=== PATIENT | male | born 1995 | race African-American/Black ===

== ENCOUNTER 2016-03-02 18:01 | Emergency (ER) | payer MEDICAID, OTHER ==
--- NOTE | 2016-03-02 20:10 | EDDOCDS ---
Nurse's Notes [facility] Name: Aleksandar Hussein Age: 20 yrs Sex: Male : 1995 Arrival Date: 03/02/2016 Time: 18:01 Bed Triage 2 Private MD: NO PRIMARY PHYSICIAN, . Diagnosis: Unspecified hemorrhoids-EXTERNAL, WITH RECTAL PAIN;Nausea Presentation: 03/02 18:03 Presenting complaint: Patient states: rectal pain, diarrhea, nausea and vomiting 3 rs3 days. H/o Hemorrhoid. Adult Sepsis Screening: The patient does not have new or worsening altered mentation. Patient's respiratory rate is less than 22. Systolic blood pressure is greater than 100. Patient has a qSOFA score of 0- Negative Sepsis Screen. Suicide/Homicide risk assessment- the patient denies having any suicidal and/or homicidal ideations and does not present with any other emotional, behavioral or mental health complaints. Status: Patient is not a hr shared services consultant or dependent. Transition of care: patient was not received from another setting of care. 18:03 Acuity: JAMIE Level 4 rs3 18:03 Method Of Arrival: Walkin/Carried/Asstd rs3 Triage Assessment: 18:05 General: Appears in no apparent distress. Pain: Location: buttocks. HIV screening NA rs3 for this visit Offered previously. Historical: - Allergies: no known allergies; - Home Meds: 1. none - PMHx: Asthma; - PSHx: none; - Social history: Smoking status: Patient uses tobacco products, heavy tobacco smoker. No barriers to communication noted, The patient speaks fluent Burmese. - Family history: Not pertinent. - : The pt / caregiver states he / she is not on anticoagulants. Home medication list is obtained from the patient. - Exposure Risk Screening:: None identified. Screenin:07 Screening information is obtained from the patient. Fall risk: No risks identified. kmg1 Assistance ADL's: requires no assistance with activities of daily living. Abuse/DV Screen: The patient / caregiver reports he/she is: not in a situation that causes fear, pain or injury. Nutritional screening: No deficits noted. Advance Directives: There is no active DNR order. home support is adequate. Assessment: 20:07 General: Appears in no apparent distress, uncomfortable, Behavior is appropriate for kmg1 age, cooperative. Pain: Location: anus Quality of pain is described as burning, pressure. GI: Abdomen is flat, non- distended Reports nausea. : PA inspected and noted external hemmorrhoids. Vital Signs: 18:02 BP 129 / 71; Pulse 65; Resp 18 S; Temp 97.8(O); Pulse Ox 100% on R/A; Weight 58.97 kg dd6 (R); Height 5 ft. 7 in. (170.18 cm) (R); 18:02 Body Mass Index 20.36 (58.97 kg, 170.18 cm) dd6 Vitals: 18:02 Log In Time: March 02, 2016 at 18:00. dd6 ED Course: 18:02 Patient visited by Tad Soria PCA. dd6 18:02 NO PRIMARY PHYSICIAN, . is Private Physician. dd6 18:02 Patient moved to Waiting dd6 18:03 Patient moved to Pre RCE dd6 18:04 Triage Initiated rs3 19:25 Patient moved to Triage 2 ct3 19:45 Conchis Kapadia PA-C is PHCP. dt4 19:45 Henry Irwin DO is Attending Physician. dt4 19:45 Patient visited by Conchis Kapadia PA-C. dt4 19:57 [facility] is Referral Physician. dt4 20:07 The patient / caregiver is instructed regarding the plan of care and ED course. kmg1 20:07 No IV's were initiated during this patient's visit. No procedures done that require kmg1 assistance. Order Results: There are currently no results for this order. Outcome: 19:59 Discharge ordered by Provider. dt4 20:07 Discharge Assessment: Patient awake, alert and oriented x 3. No cognitive and/or kmg1 functional deficits noted. Patient verbalized understanding of disposition instructions. Patient awake and alert. patient administered narcotics - no. The following High Risk Discharge criteria are identified: None. Discharged to home ambulatory, with significant other. Condition: stable. Discharge instructions given to patient, Instructed on discharge instructions, follow up and referral plans. medication usage, Demonstrated understanding of instructions, medications, Pt was receptive of discharge instructions/ teaching. Prescriptions given X 3. No special radiology studies were completed. Property sent home with patient. 20:10 Patient left the ED. km Signatures: Silvia Rivas RN RN km Tad Soria, REGISTRATION CLERK REGISTRATION CLERK dd6 Sushma,Shea,RN RN rs3 Brina Metcalf, REGISTRATION CLERK REGISTRATION CLERK ct3 Steffi, Conchis, JOANN DAVID dt4 MTDD
--- NOTE | 2016-03-02 20:10 | EDDOCDS ---
Physician Documentation [facility] Name: Aleksandar Hussein Age: 20 yrs Sex: Male : 1995 Arrival Date: 03/02/2016 Time: 18:01 Bed Triage 2 Private MD: NO PRIMARY PHYSICIAN, . Disposition: 03/02/16 19:59 Discharged to Home/Self Care. Impression: Unspecified hemorrhoids - EXTERNAL, WITH RECTAL PAIN, Nausea. - Condition is Stable. - Discharge Instructions: Hemorrhoids, Nausea, Adult. - Prescriptions for Colace 100 mg Oral Capsule - take 1 tablet by ORAL route every 12 hours As needed NEEDED FOR CONSTIPATION; 20 tablet. ZOFRAN ODT 4 mg Oral - dissolve 1 tablet by ORAL route 3-4 times daily As needed do not chew, do not swallow whole; 20 tablet. Hydrocortisone 2.5 % Rectal Cream - apply 1 application by TOPICAL route 4 times per day As needed; 30 gram. - Medication Reconciliation, Local Pharmacy Hours form. - Follow up: Emergency Department; When: As needed; Reason: Worsening of conditions. [facility]: [facility]; When: Call to arrange an appointment; Reason: Recheck today's complaints, Continuance of care, To establish care. - Problem is new. - Symptoms are unchanged. Historical: - Allergies: no known allergies; - Home Meds: 1. none - PMHx: Asthma; - PSHx: none; - Social history: Smoking status: Patient uses tobacco products, heavy tobacco smoker. No barriers to communication noted, The patient speaks fluent Telugu. - Family history: Not pertinent. - : The pt / caregiver states he / she is not on anticoagulants. Home medication list is obtained from the patient. - Exposure Risk Screening:: None identified. Vital Signs: 03/02 18:02 BP 129 / 71; Pulse 65; Resp 18 S; Temp 97.8(O); Pulse Ox 100% on R/A; Weight 58.97 kg / dd6 130.01 lbs (R); Height 5 ft. 7 in. (170.18 cm) (R); 18:02 Body Mass Index 20.36 (58.97 kg, 170.18 cm) dd6 Signatures: Silvia Rivas RN RN kmg1 Shea Ordaz RN RN rs3 Tschudi, Conchis, PA-C PA-C dt4 MTDD
--- NOTE | 2016-03-04 21:10 | EDDOCDS ---
Nurse's Notes [facility] Name: Aleksandar Hussein Age: 20 yrs Sex: Male : 1995 Arrival Date: 03/02/2016 Time: 18:01 Bed Triage 2 Private MD: NO PRIMARY PHYSICIAN, . Diagnosis: Unspecified hemorrhoids-EXTERNAL, WITH RECTAL PAIN;Nausea Presentation: 03/02 18:03 Presenting complaint: Patient states: rectal pain, diarrhea, nausea and vomiting 3 rs3 days. H/o Hemorrhoid. Adult Sepsis Screening: The patient does not have new or worsening altered mentation. Patient's respiratory rate is less than 22. Systolic blood pressure is greater than 100. Patient has a qSOFA score of 0- Negative Sepsis Screen. Suicide/Homicide risk assessment- the patient denies having any suicidal and/or homicidal ideations and does not present with any other emotional, behavioral or mental health complaints. Status: Patient is not a flight service specialist or dependent. Transition of care: patient was not received from another setting of care. 18:03 Acuity: JAMIE Level 4 rs3 18:03 Method Of Arrival: Walkin/Carried/Asstd rs3 Triage Assessment: 18:05 General: Appears in no apparent distress. Pain: Location: buttocks. HIV screening NA rs3 for this visit Offered previously. Historical: - Allergies: no known allergies; - Home Meds: 1. none - PMHx: Asthma; - PSHx: none; - Social history: Smoking status: Patient uses tobacco products, heavy tobacco smoker. No barriers to communication noted, The patient speaks fluent Maori. - Family history: Not pertinent. - : The pt / caregiver states he / she is not on anticoagulants. Home medication list is obtained from the patient. - Exposure Risk Screening:: None identified. Screenin:07 Screening information is obtained from the patient. Fall risk: No risks identified. kmg1 Assistance ADL's: requires no assistance with activities of daily living. Abuse/DV Screen: The patient / caregiver reports he/she is: not in a situation that causes fear, pain or injury. Nutritional screening: No deficits noted. Advance Directives: There is no active DNR order. home support is adequate. Assessment: 20:07 General: Appears in no apparent distress, uncomfortable, Behavior is appropriate for kmg1 age, cooperative. Pain: Location: anus Quality of pain is described as burning, pressure. GI: Abdomen is flat, non- distended Reports nausea. : PA inspected and noted external hemmorrhoids. Vital Signs: 18:02 BP 129 / 71; Pulse 65; Resp 18 S; Temp 97.8(O); Pulse Ox 100% on R/A; Weight 58.97 kg dd6 (R); Height 5 ft. 7 in. (170.18 cm) (R); 18:02 Body Mass Index 20.36 (58.97 kg, 170.18 cm) dd6 Vitals: 18:02 Log In Time: March 02, 2016 at 18:00. dd6 ED Course: 18:02 Patient visited by Tad Soria PCA. dd6 18:02 NO PRIMARY PHYSICIAN, . is Private Physician. dd6 18:02 Patient moved to Waiting dd6 18:03 Patient moved to Pre RCE dd6 18:04 Triage Initiated rs3 19:25 Patient moved to Triage 2 ct3 19:45 Conchis Kapadia PA-C is PHCP. dt4 19:45 Henry Irwin DO is Attending Physician. dt4 19:45 Patient visited by Conchis Kapadia PA-C. dt4 19:57 [facility] is Referral Physician. dt4 20:07 The patient / caregiver is instructed regarding the plan of care and ED course. kmg1 20:07 No IV's were initiated during this patient's visit. No procedures done that require kmg1 assistance. 20:15 [facility] Payment Agreement was scanned into [employer] and attached to record. jp5 03/03 12:05 T-Sheet-- Draft Copy was scanned into [employer] and attached to record. gb Order Results: There are currently no results for this order. Outcome: 03/02 19:59 Discharge ordered by Provider. dt4 20:07 Discharge Assessment: Patient awake, alert and oriented x 3. No cognitive and/or kmg1 functional deficits noted. Patient verbalized understanding of disposition instructions. Patient awake and alert. patient administered narcotics - no. The following High Risk Discharge criteria are identified: None. Discharged to home ambulatory, with significant other. Condition: stable. Discharge instructions given to patient, Instructed on discharge instructions, follow up and referral plans. medication usage, Demonstrated understanding of instructions, medications, Pt was receptive of discharge instructions/ teaching. Prescriptions given X 3. No special radiology studies were completed. Property sent home with patient. 20:10 Patient left the ED. kmg1 Signatures: Silvia Rivas, RN RN kmg1 Alecia Diaz, Reg Reg gb EstellaTad, NOODLE PRESS OPERATOR NOODLE PRESS OPERATOR dd6 Shea Ordaz RN RN rs3 Brina Metcalf, NOODLE PRESS OPERATOR NOODLE PRESS OPERATOR ct3 Conchis Kapadia PAMavis PAMavis dt4 Essence Rocha jp5 Chart Complete MTDD
--- NOTE | 2016-03-04 21:10 | EDDOCDS ---
Physician Documentation [facility] Name: Aleksandar Hussein Age: 20 yrs Sex: Male : 1995 Arrival Date: 03/02/2016 Time: 18:01 Bed Triage 2 Private MD: NO PRIMARY PHYSICIAN, . Disposition: 03/02/16 19:59 Discharged to Home/Self Care. Impression: Unspecified hemorrhoids - EXTERNAL, WITH RECTAL PAIN, Nausea. - Condition is Stable. - Discharge Instructions: Hemorrhoids, Nausea, Adult. - Prescriptions for Colace 100 mg Oral Capsule - take 1 tablet by ORAL route every 12 hours As needed NEEDED FOR CONSTIPATION; 20 tablet. ZOFRAN ODT 4 mg Oral - dissolve 1 tablet by ORAL route 3-4 times daily As needed do not chew, do not swallow whole; 20 tablet. Hydrocortisone 2.5 % Rectal Cream - apply 1 application by TOPICAL route 4 times per day As needed; 30 gram. - Medication Reconciliation, Local Pharmacy Hours form. - Follow up: Emergency Department; When: As needed; Reason: Worsening of conditions. Follow [facility]: [facility]; When: Call to arrange an appointment; Reason: Recheck today's complaints, Continuance of care, To establish care. - Problem is new. - Symptoms are unchanged. Historical: - Allergies: no known allergies; - Home Meds: 1. none - PMHx: Asthma; - PSHx: none; - Social history: Smoking status: Patient uses tobacco products, heavy tobacco smoker. No barriers to communication noted, The patient speaks fluent Uzbek. - Family history: Not pertinent. - : The pt / caregiver states he / she is not on anticoagulants. Home medication list is obtained from the patient. - Exposure Risk Screening:: None identified. Vital Signs: 03/02 18:02 BP 129 / 71; Pulse 65; Resp 18 S; Temp 97.8(O); Pulse Ox 100% on R/A; Weight 58.97 kg / dd6 130.01 lbs (R); Height 5 ft. 7 in. (170.18 cm) (R); 18:02 Body Mass Index 20.36 (58.97 kg, 170.18 cm) dd6 MDM: 20:15 [facility] Payment Agreement was scanned into [employer] and attached to record. jp5 20:16 Financial registration complete. jp5 03/03 12:05 T-Sheet-- Draft Copy was scanned into [employer] and attached to record. gb Signatures: Silvia Rivas, RN RN kmg1 Alecia Diaz, Reg Reg gb Shea OrdazRN RN rs3 Conchis Kapadia, JOANN PAMavis dt4 Essence Rocha jp5 The chart was reviewed and I authenticate all verbal orders and agree with the evaluation and treatment provided.Attachments: 03/02 20:15 [facility] [place] Payment Agreement jp5 03/03 12:05 T-Sheet-- Draft Copy gb Chart Complete MTDD
--- NOTE | 2016-03-04 21:10 | EDDOCDS ---
Physician Documentation [facility] Name: Aleksandar Hussein Age: 20 yrs Sex: Male : 1995 Arrival Date: 03/02/2016 Time: 18:01 Bed Triage 2 Private MD: NO PRIMARY PHYSICIAN, . Disposition: 03/02/16 19:59 Discharged to Home/Self Care. Impression: Unspecified hemorrhoids - EXTERNAL, WITH RECTAL PAIN, Nausea. - Condition is Stable. - Discharge Instructions: Hemorrhoids, Nausea, Adult. - Prescriptions for Colace 100 mg Oral Capsule - take 1 tablet by ORAL route every 12 hours As needed NEEDED FOR CONSTIPATION; 20 tablet. ZOFRAN ODT 4 mg Oral - dissolve 1 tablet by ORAL route 3-4 times daily As needed do not chew, do not swallow whole; 20 tablet. Hydrocortisone 2.5 % Rectal Cream - apply 1 application by TOPICAL route 4 times per day As needed; 30 gram. - Medication Reconciliation, Local Pharmacy Hours form. - Follow up: Emergency Department; When: As needed; Reason: Worsening of conditions. Follow [facility]: [facility]; When: Call to arrange an appointment; Reason: Recheck today's complaints, Continuance of care, To establish care. - Problem is new. - Symptoms are unchanged. Historical: - Allergies: no known allergies; - Home Meds: 1. none - PMHx: Asthma; - PSHx: none; - Social history: Smoking status: Patient uses tobacco products, heavy tobacco smoker. No barriers to communication noted, The patient speaks fluent Nepali. - Family history: Not pertinent. - : The pt / caregiver states he / she is not on anticoagulants. Home medication list is obtained from the patient. - Exposure Risk Screening:: None identified. Vital Signs: 03/02 18:02 BP 129 / 71; Pulse 65; Resp 18 S; Temp 97.8(O); Pulse Ox 100% on R/A; Weight 58.97 kg / dd6 130.01 lbs (R); Height 5 ft. 7 in. (170.18 cm) (R); 18:02 Body Mass Index 20.36 (58.97 kg, 170.18 cm) dd6 MDM: 20:15 [facility] Payment Agreement was scanned into [employer] and attached to record. jp5 20:16 Financial registration complete. jp5 03/03 12:05 T-Sheet-- Draft Copy was scanned into [employer] and attached to record. gb Signatures: Silvia Rivas, RN RN kmg1 Alecia Diaz, Reg Reg gb Shea OrdazRN RN rs3 Conchis Kapadia, JOANN PAMavis dt4 Essence Rocha jp5 The chart was reviewed and I authenticate all verbal orders and agree with the evaluation and treatment provided.Attachments: 03/02 20:15 [facility] Payment Agreement jp5 03/03 12:05 T-Sheet-- Draft Copy gb Chart Complete MTDD
== END 2016-03-02 20:10 | disposition home or self-care (01) ==
LOC: M ED 18:01
DX: K64.4 Residual hemorrhoidal skin tags (principal); K62.89 Other specified diseases of anus and rectum; R11.0 Nausea; J45.909 Unspecified asthma, uncomplicated; F17.200 Nicotine dependence, unspecified, uncomplicated

== ENCOUNTER 2016-03-29 23:11 | Emergency (ER) | payer OTHER ==
[2016-03-30] MEDS ORDERED: IBUPROFEN 600 MG TAB As Ordered ONE (01:34)
[2016-03-30] MEDS ORDERED: ACETAMINOPHEN 325 MG TAB As Ordered ONE (01:35)
[2016-03-30 01:55] LABS: BASO % 0.4 % (0.0-1.0); EOS # 0.1 K/mm3 (0.0-0.50); EOS % 1.2 % (0.0-3.0); LARGE UNSTAINED CELL # 0.2 K/mm3 (0.0-0.4); LARGE UNSTAINED CELL % 1.7 % (0.0-4.0); LYMPH # 1.2 K/mm3 (1.5-6.5); LYMPH % 14.1 % (24.0-44.0); MEAN CORPUSCULAR HEMOGLOBIN 30.9 pg (27.0-33.0); MEAN CORPUSCULAR HGB CONC 34.6 g/dl (32.0-36.5); MEAN CORPUSCULAR VOLUME 89.4 fl (80.0-96.0); MONO # 0.3 K/mm3 (0.0-0.8); MONO % 3.8 % (0.0-5.0); NEUTROPHILS # 6.7 K/mm3 (1.8-7.7); NEUTROPHILS % 78.8 % (36.0-66.0); PLATELET COUNT, AUTOMATED 196 k/mm3 (150-450); RED CELL DISTRIBUTION WIDTH 12.2 % (11.5-14.5); WHITE BLOOD COUNT 8.4 K/mm3 (4.0-10.0)
[2016-03-30 02:19] LABS: ANION GAP 7 MEQ/L (8-16); BLOOD UREA NITROGEN 9 MG/DL (7-18); CALCIUM LEVEL 8.9 MG/DL (8.5-10.1); CARBON DIOXIDE LEVEL 27 MEQ/L (21-32); CHLORIDE LEVEL 106 MEQ/L (98-107); CREATININE FOR GFR 0.88 MG/DL (0.70-1.30); GLUCOSE, FASTING 86 MG/DL (70-105); SODIUM LEVEL 140 MEQ/L (136-145)
[2016-03-30] MEDS ORDERED: DOXYCYCLINE HYCLATE 100 MG TAB As Ordered ONE (02:40)
[2016-03-30] MEDS ORDERED: predniSONE 20 MG TAB As Ordered ONE (02:40)
--- NOTE | 2016-03-30 02:48 | EDDOCDS ---
Nurse's Notes [facility] Name: Aleksandar Hussein Age: 20 yrs Sex: Male : 1995 Arrival Date: 03/29/2016 Time: 23:11 Bed I2 / M2 Private MD: Diagnosis: Acute bronchitis Presentation: 03/29 23:25 Presenting complaint: Patient states: Burning ion chest and throat. Feels SOB with jo3 tenderness behind ears and around eyes. Coughing with thick green mucous production. Adult Sepsis Screening: The patient does not have new or worsening altered mentation. Patient's respiratory rate is less than 22. Systolic blood pressure is greater than 100. Patient has a qSOFA score of 0- Negative Sepsis Screen. Suicide/Homicide risk assessment- the patient denies having any suicidal and/or homicidal ideations and does not present with any other emotional, behavioral or mental health complaints. Status: Patient is not a electric refrigerator servicer or dependent. Transition of care: patient was not received from another setting of care. 23:25 Acuity: JAMIE Level 4 jo3 23:25 Method Of Arrival: Walkin/Carried/Asstd jo3 Triage Assessment: 23:26 General: Appears in no apparent distress, Behavior is appropriate for age, cooperative. jo3 HIV screening NA for this visit Offered previously. Neurological: Level of Consciousness is awake, alert, Oriented to person, place, time. Respiratory: Airway is patent Respiratory effort is even, unlabored. Derm: Skin is pink, warm & dry. Historical: - Allergies: No known drug Allergies; - Home Meds: 1. none - PMHx: Asthma; - PSHx: none; - Social history: Smoking status: Patient uses tobacco products, light tobacco smoker. No barriers to communication noted, The patient speaks fluent Andorran, Speaks appropriately for age. - Family history: Not pertinent. - : The pt / caregiver states he / she is not on anticoagulants. Home medication list is obtained from. - Exposure Risk Screening:: None identified. Screenin/17 02:45 Screening information is obtained from the patient. Fall risk: No risks identified. ld5 Assistance ADL's: requires no assistance with activities of daily living. Abuse/DV Screen: The patient / caregiver reports he/she is: not in a situation that causes fear, pain or injury. Nutritional screening: No deficits noted. Advance Directives: There is no active DNR order. There is no living will. home support is adequate. Assessment: 01:38 General: Appears in no apparent distress, Behavior is cooperative. Pain: Location: ld5 chest Aggravated by cough. Neurological: Level of Consciousness is awake, alert. Cardiovascular: Chest pain pt reports from coughing. Respiratory: Airway is patent Respiratory effort is even, unlabored, Breath sounds are diminished bilaterally. GI: Abdomen is non- distended Denies nausea, vomiting. Derm: Skin is intact, Skin is dry, Skin is normal, Skin temperature is warm. 02:33 General: Pt sitting up in bed. No apparent distress. Reports feeling better. Will ld5 continue to monitor. 02:45 General: Appears in no apparent distress, Behavior is cooperative, pleasant. Pain: Pain ld5 currently is 2 out of 10 on a pain scale. Neurological: Level of Consciousness is awake, alert. Respiratory: Airway is patent Respiratory effort is even, unlabored. Vital Signs: 03/29 23:26 BP 119 / 63; Pulse 87; Resp 18; Temp 101.7(TE); Pulse Ox 96% on R/A; Weight 62.6 kg; jo3 Height 5 ft. 7 in. (170.18 cm); 03/30 02:33 BP 123 / 60; Pulse 85; Resp 16; Temp 98.2; Pulse Ox 95% on R/A; Pain 2/10; ld5 03/29 23:26 Body Mass Index 21.61 (62.60 kg, 170.18 cm) jo3 Vitals: 01:49 Strep Screen is obtained and tested: Negative, a GATSNEG culture is ordered in [facility] and sent. 02:47 Log In Time: March 29, 2016 at 23:11. ld5 ED Course: 03/29 23:12 Patient visited by Tereso Costa Reg. pm4 23:12 Patient moved to Waiting pm4 23:26 Triage Initiated jo3 23:28 Patient visited by Karoline Castelan RN. jo3 23:28 Patient moved to Pre RCE jo3 03/30 01:08 Patient moved to MTA Wait sls1 01:27 Patient moved to I2 / M2 ajs 01:32 Janes Mariscal RPA-C is PHCP. ck7 01:32 Henry Irwin DO is Attending Physician. ck7 01:32 Patient visited by Janes Mariscal RPA-C. ck7 01:40 MED Profile Sent. ajs 01:40 CBC with Diff Sent. ajs 01:44 Patient visited by Christine Rosenberg RN. ld5 01:52 GATS (NEGATIVE STREP SCREEN) Sent. m 02:09 [facility] Payment Agreement was scanned into [employer] and attached to record. hs2 02:17 Patient visited by Janes Mariscal RPA-C. ck7 02:33 Patient visited by Christine Rosenberg RN. ld5 02:41 [facility] is Referral Physician. ck7 02:45 The patient / caregiver is instructed regarding the plan of care and ED course. Patient ld5 has correct armband on for positive identification. 02:45 No IV's were initiated during this patient's visit. No procedures done that require ld5 assistance. 02:47 Patient visited by Christine Rosenberg RN. ld5 Administered Medications: 01:37 Drug: Acetaminophen 975 mg [acetaminophen 325 mg tablet (3 tabs)] Route: PO; ld5 02:34 Follow up: Response: Temperature is decreased ld5 01:37 Drug: Ibuprofen 600 mg [ibuprofen 600 mg tablet (1 tabs)] Route: PO; ld5 02:34 Follow up: Response: Temperature is decreased ld5 Order Results: Lab Order: CBC with Diff; SPEC'M 03/30/16 01:35 Test: WHITE BLOOD COUNT; Value: 8.4; Range: 4.0-10.0; Units: K/mm3; Status: F Test: RED BLOOD COUNT; Value: 4.72; Range: 4.30-6.10; Units: M/mm3; Status: F Test: HEMOGLOBIN; Value: 14.6; Range: 14.0-18.0; Units: g/dl; Status: F Test: HEMATOCRIT; Value: 42.2; Range: 42.0-52.0; Units: %; Status: F Test: MEAN CORPUSCULAR VOLUME; Value: 89.4; Range: 80.0-96.0; Units: fl; Status: F Test: MEAN CORPUSCULAR HEMOGLOBIN; Value: 30.9; Range: 27.0-33.0; Units: pg; Status: F Test: MEAN CORPUSCULAR HGB CONC; Value: 34.6; Range: 32.0-36.5; Units: g/dl; Status: F Test: RED CELL DISTRIBUTION WIDTH; Value: 12.2; Range: 11.5-14.5; Units: %; Status: F Test: PLATELET COUNT, AUTOMATED; Value: 196; Range: 150-450; Units: k/mm3; Status: F Test: NEUTROPHILS %; Value: 78.8; Range: 36.0-66.0; Abnormal: Above high normal; Units: %; Status: F Test: LYMPH %; Value: 14.1; Range: 24.0-44.0; Abnormal: Below low normal; Units: %; Status: F Test: MONO %; Value: 3.8; Range: 0.0-5.0; Units: %; Status: F Test: EOS %; Value: 1.2; Range: 0.0-3.0; Units: %; Status: F Test: BASO %; Value: 0.4; Range: 0.0-1.0; Units: %; Status: F Test: LARGE UNSTAINED CELL %; Value: 1.7; Range: 0.0-4.0; Units: %; Status: F Test: NEUTROPHILS #; Value: 6.7; Range: 1.8-7.7; Units: K/mm3; Status: F Test: LYMPH #; Value: 1.2; Range: 1.5-6.5; Abnormal: Below low normal; Units: K/mm3; Status: F Test: MONO #; Value: 0.3; Range: 0.0-0.8; Units: K/mm3; Status: F Test: EOS #; Value: 0.1; Range: 0.0-0.50; Units: K/mm3; Status: F Test: BASO #; Value: 0.0; Range: 0.0-0.2; Units: K/mm3; Status: F Test: LARGE UNSTAINED CELL #; Value: 0.2; Range: 0.0-0.4; Units: K/mm3; Status: F Lab Order: MED Profile; SPEC'M 03/30/16 01:35 Test: GLUCOSE, FASTING; Value: 86; Range: 70-105; Units: MG/DL; Status: F Test: BLOOD UREA NITROGEN; Value: 9; Range: 7-18; Units: MG/DL; Status: F Test: CREATININE FOR GFR; Value: 0.88; Range: 0.70-1.30; Units: MG/DL; Status: F Test: SODIUM LEVEL; Value: 140; Range: 136-145; Units: MEQ/L; Status: F Test: POTASSIUM SERUM; Value: 4.0; Range: 3.5-5.1; Units: MEQ/L; Status: F Test: CHLORIDE LEVEL; Value: 106; Range: 98-107; Units: MEQ/L; Status: F Test: CARBON DIOXIDE LEVEL; Value: 27; Range: 21-32; Units: MEQ/L; Status: F Test: ANION GAP; Value: 7; Range: 8-16; Abnormal: Below low normal; Units: MEQ/L; Status: F Test: CALCIUM LEVEL; Value: 8.9; Range: 8.5-10.1; Units: MG/DL; Status: F Lab Order: -Influenza A&B Rapid Antigen - Nose; SPEC'M 03/30/16 01:35 Test: INFLUENZA A RAPID SCR by ICA; Value: INFLUENZA A RESULTS NEGATIVE; Status: F Test: INFLUENZA A RAPID SCR by ICA; Value: Comments:; Status: F Test: INFLUENZA B RAPID SCR by ICA; Value: INFLUENZA B RESULTS NEGATIVE; Status: F Test Note: ; The Influenza test is a direct rapid immunoassay for the qualitative detection of Influenza viral antigen. Cell culture (Viral Culture) testing should be considered to confirm NEGATIVE results and to assist in detecting other viruses that can provide similar clinical symptoms. Please contact the lab within 24 hours ([phone]) if confirmatory testing is desired. Outcome: 02:41 Discharge ordered by Provider. ck7 02:45 Discharge Assessment: Patient awake, alert and oriented x 3. No cognitive and/or ld5 functional deficits noted. Patient verbalized understanding of disposition instructions. patient administered narcotics - no. The following High Risk Discharge criteria are identified: None. Discharged to home ambulatory, with significant other. Condition: stable. Discharge instructions given to patient, significant other, Instructed on discharge instructions, follow up and referral plans. medication usage, Demonstrated understanding of instructions, medications, Pt was receptive of discharge instructions/ teaching. Prescriptions given X 2. No special radiology studies were completed. Property :Personal belongings accompany Pt. 02:47 Patient left the ED. ld5 Signatures: Karoline Castelan,RN RN andres3 Christine RosenbergRN RN ld5 Abigail Roy Shannon RN RN sls1 Janes Mariscal, RPA-C RPA-Cck7 Elodia Reynolds,[employer] MANAGER [employer] MANAGER Ghislaine Costa, Reg Reg hs2 Tereso Costa, Reg Reg pm4 MTDD
--- NOTE | 2016-03-30 02:48 | EDDOCDS ---
Physician Documentation [facility] Name: Aleksandar Hussein Age: 20 yrs Sex: Male : 1995 Arrival Date: 03/29/2016 Time: 23:11 Bed I2 / M2 Private MD: Disposition: 03/30/16 02:41 Discharged to Home/Self Care. Impression: Acute bronchitis. - Condition is Stable. - Discharge Instructions: Acute Bronchitis. - Prescriptions for Doxycycline Hyclate 100 mg Oral Tablet - take 1 tablet by ORAL route every 12 hours; 20 tablet. Prednisone 20 mg Oral Tablet - take 2 tablet by ORAL route once daily for 5 days; 10 tablet. - Medication Reconciliation, Local Pharmacy Hours form. - Follow up: [facility]; When: 2 - 3 days; Reason: Recheck today's complaints, Continuance of care. - Problem is new. - Symptoms have improved. - Notes: USE MEDICATIONS INSTRUCTED, FOLLOW UP WITH THE GRADUATE MEDICAL PROGRAM IN 2-3 DAYS, RETURN TO THE ER IF THE SYMPTOMS WORSEN OR BECOME CONCERNING Historical: - Allergies: No known drug Allergies; - Home Meds: 1. none - PMHx: Asthma; - PSHx: none; - Social history: Smoking status: Patient uses tobacco products, light tobacco smoker. No barriers to communication noted, The patient speaks fluent Khmer, Speaks appropriately for age. - Family history: Not pertinent. - : The pt / caregiver states he / she is not on anticoagulants. Home medication list is obtained from. - Exposure Risk Screening:: None identified. Vital Signs: 03/29 23:26 BP 119 / 63; Pulse 87; Resp 18; Temp 101.7(TE); Pulse Ox 96% on R/A; Weight 62.6 kg / jo3 138.01 lbs; Height 5 ft. 7 in. (170.18 cm); 03/30 02:33 BP 123 / 60; Pulse 85; Resp 16; Temp 98.2; Pulse Ox 95% on R/A; Pain 2/10; ld5 03/29 23:26 Body Mass Index 21.61 (62.60 kg, 170.18 cm) jo3 MDM: 01:33 Obtain sample by nasopharyngeal swab ordered. ck7 01:33 Strep Screen, Nursing ordered. ck7 01:33 Acetaminophen Tablet 975 mg PO once ordered. ck7 01:33 Ibuprofen 600 mg PO once ordered. ck7 01:33 CBC with Diff Ordered. EDMS 01:33 MED Profile Ordered. EDMS 01:33 -Influenza A&B Rapid Antigen - Nose Ordered. EDMS 01:33 Chest, 2 View (pa\E\lat) Ordered. EDMS 01:50 GATS (NEGATIVE STREP SCREEN) Ordered. EDMS 02:09 Financial registration complete. hs2 02:09 [facility] Payment Agreement was scanned into [employer] and attached to record. hs2 02:24 CBC with Diff Reviewed. ck7 02:24 MED Profile Reviewed. ck7 02:24 -Influenza A&B Rapid Antigen - Nose Reviewed. ck7 02:28 Recheck Vital Signs, perform reassessment and enter into [employer] ordered. ck7 02:36 predniSONE 40 mg PO once; administer with food or milk ordered. ck7 02:36 Doxycycline 100 mg PO once ordered. ck7 Administered Medications: 01:37 Drug: Acetaminophen 975 mg [acetaminophen 325 mg tablet (3 tabs)] Route: PO; ld5 02:34 Follow up: Response: Temperature is decreased ld5 01:37 Drug: Ibuprofen 600 mg [ibuprofen 600 mg tablet (1 tabs)] Route: PO; ld5 02:34 Follow up: Response: Temperature is decreased ld5 Signatures: Dispatcher [employer] EDMS Karoline CastelanRN RN andres3 Christine RosenbergRN RN ld5 Janes Mariscal, RPA-C RPA-Cck7 Ghislaine Velasquez, Reg Reg hs2 The chart was reviewed and I authenticate all verbal orders and agree with the evaluation and treatment provided.Attachments: 02:09 [facility] Payment Agreement hs2 MTDD
--- NOTE | 2016-03-30 08:04 | REP ---
Clinical: Acute cough . Comparison: 01/31/2015 . Technique: PA and lateral. Findings: The mediastinum and cardiac silhouette are normal. The lung dent are clear and without acute consolidation, effusion, or pneumothorax. The skeletal structures are intact and normal. Impression: 1. No acute cardiopulmonary process. Signed by Iftikhar Merchant MD 03/30/2016 07:56 A
--- NOTE | 2016-04-01 03:48 | EDDOCDS ---
Physician Documentation [facility] Name: Aleksandar Hussein Age: 20 yrs Sex: Male : 1995 Arrival Date: 03/29/2016 Time: 23:11 Bed I2 / M2 Private MD: Disposition: 03/30/16 02:41 Discharged to Home/Self Care. Impression: Acute bronchitis. - Condition is Stable. - Discharge Instructions: Acute Bronchitis. - Prescriptions for Doxycycline Hyclate 100 mg Oral Tablet - take 1 tablet by ORAL route every 12 hours; 20 tablet. Prednisone 20 mg Oral Tablet - take 2 tablet by ORAL route once daily for 5 days; 10 tablet. - Medication Reconciliation, Local Pharmacy Hours form. - Follow up: [facility]; When: 2 - 3 days; Reason: Recheck today's complaints, Continuance of care. - Problem is new. - Symptoms have improved. - Notes: USE MEDICATIONS INSTRUCTED, FOLLOW UP WITH THE GRADUATE MEDICAL PROGRAM IN 2-3 DAYS, RETURN TO THE ER IF THE SYMPTOMS WORSEN OR BECOME CONCERNING Historical: - Allergies: No known drug Allergies; - Home Meds: 1. none - PMHx: Asthma; - PSHx: none; - Social history: Smoking status: Patient uses tobacco products, light tobacco smoker. No barriers to communication noted, The patient speaks fluent Yoruba, Speaks appropriately for age. - Family history: Not pertinent. - : The pt / caregiver states he / she is not on anticoagulants. Home medication list is obtained from. - Exposure Risk Screening:: None identified. Vital Signs: 03/29 23:26 BP 119 / 63; Pulse 87; Resp 18; Temp 101.7(TE); Pulse Ox 96% on R/A; Weight 62.6 kg / jo3 138.01 lbs; Height 5 ft. 7 in. (170.18 cm); 03/30 02:33 BP 123 / 60; Pulse 85; Resp 16; Temp 98.2; Pulse Ox 95% on R/A; Pain 2/10; ld5 03/29 23:26 Body Mass Index 21.61 (62.60 kg, 170.18 cm) jo3 MDM: 01:33 Obtain sample by nasopharyngeal swab ordered. ck7 01:33 Strep Screen, Nursing ordered. ck7 01:33 Acetaminophen Tablet 975 mg PO once ordered. ck7 01:33 Ibuprofen 600 mg PO once ordered. ck7 01:33 CBC with Diff Ordered. EDMS 01:33 MED Profile Ordered. EDMS 01:33 -Influenza A&B Rapid Antigen - Nose Ordered. EDMS 01:33 Chest, 2 View (pa\E\lat) Ordered. EDMS 01:50 GATS (NEGATIVE STREP SCREEN) Ordered. EDMS 02:09 Financial registration complete. hs2 02:09 [facility] Payment Agreement was scanned into [employer] and attached to record. hs2 02:24 CBC with Diff Reviewed. ck7 02:24 MED Profile Reviewed. ck7 02:24 -Influenza A&B Rapid Antigen - Nose Reviewed. ck7 02:28 Recheck Vital Signs, perform reassessment and enter into [employer] ordered. ck7 02:36 predniSONE 40 mg PO once; administer with food or milk ordered. ck7 02:36 Doxycycline 100 mg PO once ordered. ck7 12:02 T-Sheet-- Draft Copy was scanned into [employer] and attached to record. gb Administered Medications: 01:37 Drug: Acetaminophen 975 mg [acetaminophen 325 mg tablet (3 tabs)] Route: PO; ld5 02:34 Follow up: Response: Temperature is decreased ld5 01:37 Drug: Ibuprofen 600 mg [ibuprofen 600 mg tablet (1 tabs)] Route: PO; ld5 02:34 Follow up: Response: Temperature is decreased ld5 Signatures: Dispatcher [employer] EDMS Alecia Diaz, Reg Reg gb Karoline CastelanRN RN andres3 Christine Rosenberg RN RN ld5 Janes Mariscal, RPA-C RPA-Cck7 Ghislaine Velasquez, Reg Reg hs2 The chart was reviewed and I authenticate all verbal orders and agree with the evaluation and treatment provided.Attachments: 02:09 [facility] Payment Agreement hs2 12:02 T-Sheet-- Draft Copy gb Chart Complete MTDD
--- NOTE | 2016-04-01 03:48 | EDDOCDS ---
Physician Documentation [facility] Name: Aleksandar Hussein Age: 20 yrs Sex: Male : 1995 Arrival Date: 03/29/2016 Time: 23:11 Bed I2 / M2 Private MD: Disposition: 03/30/16 02:41 Discharged to Home/Self Care. Impression: Acute bronchitis. - Condition is Stable. - Discharge Instructions: Acute Bronchitis. - Prescriptions for Doxycycline Hyclate 100 mg Oral Tablet - take 1 tablet by ORAL route every 12 hours; 20 tablet. Prednisone 20 mg Oral Tablet - take 2 tablet by ORAL route once daily for 5 days; 10 tablet. - Medication Reconciliation, Local Pharmacy Hours form. - Follow up: [facility]; When: 2 - 3 days; Reason: Recheck today's complaints, Continuance of care. - Problem is new. - Symptoms have improved. - Notes: USE MEDICATIONS INSTRUCTED, FOLLOW UP WITH THE GRADUATE MEDICAL PROGRAM IN 2-3 DAYS, RETURN TO THE ER IF THE SYMPTOMS WORSEN OR BECOME CONCERNING Historical: - Allergies: No known drug Allergies; - Home Meds: 1. none - PMHx: Asthma; - PSHx: none; - Social history: Smoking status: Patient uses tobacco products, light tobacco smoker. No barriers to communication noted, The patient speaks fluent Croatian, Speaks appropriately for age. - Family history: Not pertinent. - : The pt / caregiver states he / she is not on anticoagulants. Home medication list is obtained from. - Exposure Risk Screening:: None identified. Vital Signs: 03/29 23:26 BP 119 / 63; Pulse 87; Resp 18; Temp 101.7(TE); Pulse Ox 96% on R/A; Weight 62.6 kg / jo3 138.01 lbs; Height 5 ft. 7 in. (170.18 cm); 03/30 02:33 BP 123 / 60; Pulse 85; Resp 16; Temp 98.2; Pulse Ox 95% on R/A; Pain 2/10; ld5 03/29 23:26 Body Mass Index 21.61 (62.60 kg, 170.18 cm) jo3 MDM: 01:33 Obtain sample by nasopharyngeal swab ordered. ck7 01:33 Strep Screen, Nursing ordered. ck7 01:33 Acetaminophen Tablet 975 mg PO once ordered. ck7 01:33 Ibuprofen 600 mg PO once ordered. ck7 01:33 CBC with Diff Ordered. EDMS 01:33 MED Profile Ordered. EDMS 01:33 -Influenza A&B Rapid Antigen - Nose Ordered. EDMS 01:33 Chest, 2 View (pa\E\lat) Ordered. EDMS 01:50 GATS (NEGATIVE STREP SCREEN) Ordered. EDMS 02:09 Financial registration complete. hs2 02:09 [facility] [place] Agreement was scanned into [employer] and attached to record. hs2 02:24 CBC with Diff Reviewed. ck7 02:24 MED Profile Reviewed. ck7 02:24 -Influenza A&B Rapid Antigen - Nose Reviewed. ck7 02:28 Recheck Vital Signs, perform reassessment and enter into [employer] ordered. ck7 02:36 predniSONE 40 mg PO once; administer with food or milk ordered. ck7 02:36 Doxycycline 100 mg PO once ordered. ck7 12:02 T-Sheet-- Draft Copy was scanned into [employer] and attached to record. gb Administered Medications: 01:37 Drug: Acetaminophen 975 mg [acetaminophen 325 mg tablet (3 tabs)] Route: PO; ld5 02:34 Follow up: Response: Temperature is decreased ld5 01:37 Drug: Ibuprofen 600 mg [ibuprofen 600 mg tablet (1 tabs)] Route: PO; ld5 02:34 Follow up: Response: Temperature is decreased ld5 Signatures: Dispatcher [employer] EDMS Alecia Diaz, Reg Reg gb Karoline CastelanRN RN andres3 Christine Rosenberg RN RN ld5 Janes Mariscal, RPA-C RPA-Cck7 Ghislaine Velasquez, Reg Reg hs2 The chart was reviewed and I authenticate all verbal orders and agree with the evaluation and treatment provided.Attachments: 02:09 [facility] hs2 12:02 T-Sheet-- Draft Copy gb Chart Complete MTDD
--- NOTE | 2016-04-01 03:48 | EDDOCDS ---
Nurse's Notes [facility] Name: Aleksandar Hussein Age: 20 yrs Sex: Male : 1995 Arrival Date: 03/29/2016 Time: 23:11 Bed I2 / M2 Private MD: Diagnosis: Acute bronchitis Presentation: 03/29 23:25 Presenting complaint: Patient states: Burning ion chest and throat. Feels SOB with jo3 tenderness behind ears and around eyes. Coughing with thick green mucous production. Adult Sepsis Screening: The patient does not have new or worsening altered mentation. Patient's respiratory rate is less than 22. Systolic blood pressure is greater than 100. Patient has a qSOFA score of 0- Negative Sepsis Screen. Suicide/Homicide risk assessment- the patient denies having any suicidal and/or homicidal ideations and does not present with any other emotional, behavioral or mental health complaints. Status: Patient is not a library services dean or dependent. Transition of care: patient was not received from another setting of care. 23:25 Acuity: JAMIE Level 4 jo3 23:25 Method Of Arrival: Walkin/Carried/Asstd jo3 Triage Assessment: 23:26 General: Appears in no apparent distress, Behavior is appropriate for age, cooperative. jo3 HIV screening NA for this visit Offered previously. Neurological: Level of Consciousness is awake, alert, Oriented to person, place, time. Respiratory: Airway is patent Respiratory effort is even, unlabored. Derm: Skin is pink, warm & dry. Historical: - Allergies: No known drug Allergies; - Home Meds: 1. none - PMHx: Asthma; - PSHx: none; - Social history: Smoking status: Patient uses tobacco products, light tobacco smoker. No barriers to communication noted, The patient speaks fluent Serbian, Speaks appropriately for age. - Family history: Not pertinent. - : The pt / caregiver states he / she is not on anticoagulants. Home medication list is obtained from. - Exposure Risk Screening:: None identified. Screenin/17 02:45 Screening information is obtained from the patient. Fall risk: No risks identified. ld5 Assistance ADL's: requires no assistance with activities of daily living. Abuse/DV Screen: The patient / caregiver reports he/she is: not in a situation that causes fear, pain or injury. Nutritional screening: No deficits noted. Advance Directives: There is no active DNR order. There is no living will. home support is adequate. Assessment: 01:38 General: Appears in no apparent distress, Behavior is cooperative. Pain: Location: ld5 chest Aggravated by cough. Neurological: Level of Consciousness is awake, alert. Cardiovascular: Chest pain pt reports from coughing. Respiratory: Airway is patent Respiratory effort is even, unlabored, Breath sounds are diminished bilaterally. GI: Abdomen is non- distended Denies nausea, vomiting. Derm: Skin is intact, Skin is dry, Skin is normal, Skin temperature is warm. 02:33 General: Pt sitting up in bed. No apparent distress. Reports feeling better. Will ld5 continue to monitor. 02:45 General: Appears in no apparent distress, Behavior is cooperative, pleasant. Pain: Pain ld5 currently is 2 out of 10 on a pain scale. Neurological: Level of Consciousness is awake, alert. Respiratory: Airway is patent Respiratory effort is even, unlabored. Vital Signs: 03/29 23:26 BP 119 / 63; Pulse 87; Resp 18; Temp 101.7(TE); Pulse Ox 96% on R/A; Weight 62.6 kg; jo3 Height 5 ft. 7 in. (170.18 cm); 03/30 02:33 BP 123 / 60; Pulse 85; Resp 16; Temp 98.2; Pulse Ox 95% on R/A; Pain 2/10; ld5 03/29 23:26 Body Mass Index 21.61 (62.60 kg, 170.18 cm) jo3 Vitals: 01:49 Strep Screen is obtained and tested: Negative, a GATSNEG culture is ordered in [facility] and sent. 02:47 Log In Time: March 29, 2016 at 23:11. ld5 ED Course: 03/29 23:12 Patient visited by Tereso Costa Reg. pm4 23:12 Patient moved to Waiting pm4 23:26 Triage Initiated jo3 23:28 Patient visited by Karoline Castelan RN. jo3 23:28 Patient moved to Pre RCE jo3 03/30 01:08 Patient moved to MTA Wait sls1 01:27 Patient moved to I2 / M2 ajs 01:32 Janes Mariscal RPA-C is PHCP. ck7 01:32 Henry Irwin DO is Attending Physician. ck7 01:32 Patient visited by Janes Mariscal RPA-C. ck7 01:40 MED Profile Sent. ajs 01:40 CBC with Diff Sent. ajs 01:44 Patient visited by Christine Rosenberg RN. ld5 01:52 GATS (NEGATIVE STREP SCREEN) Sent. slm 02:09 [facility] Payment Agreement was scanned into [employer] and attached to record. hs2 02:17 Patient visited by Janes Mariscal RPA-C. ck7 02:33 Patient visited by Christine Rosenberg RN. ld5 02:41 [facility] is Referral Physician. ck7 02:45 The patient / caregiver is instructed regarding the plan of care and ED course. Patient ld5 has correct armband on for positive identification. 02:45 No IV's were initiated during this patient's visit. No procedures done that require ld5 assistance. 02:47 Patient visited by Christine Rosenberg RN. ld5 08:16 Chest, 2 View (pa\E\lat) Returned. EDMS 12:02 T-Sheet-- Draft Copy was scanned into [employer] and attached to record. gb Administered Medications: 01:37 Drug: Acetaminophen 975 mg [acetaminophen 325 mg tablet (3 tabs)] Route: PO; ld5 02:34 Follow up: Response: Temperature is decreased ld5 01:37 Drug: Ibuprofen 600 mg [ibuprofen 600 mg tablet (1 tabs)] Route: PO; ld5 02:34 Follow up: Response: Temperature is decreased ld5 Order Results: Lab Order: CBC with Diff; SPEC'M 03/30/16 01:35 Test: WHITE BLOOD COUNT; Value: 8.4; Range: 4.0-10.0; Units: K/mm3; Status: F Test: RED BLOOD COUNT; Value: 4.72; Range: 4.30-6.10; Units: M/mm3; Status: F Test: HEMOGLOBIN; Value: 14.6; Range: 14.0-18.0; Units: g/dl; Status: F Test: HEMATOCRIT; Value: 42.2; Range: 42.0-52.0; Units: %; Status: F Test: MEAN CORPUSCULAR VOLUME; Value: 89.4; Range: 80.0-96.0; Units: fl; Status: F Test: MEAN CORPUSCULAR HEMOGLOBIN; Value: 30.9; Range: 27.0-33.0; Units: pg; Status: F Test: MEAN CORPUSCULAR HGB CONC; Value: 34.6; Range: 32.0-36.5; Units: g/dl; Status: F Test: RED CELL DISTRIBUTION WIDTH; Value: 12.2; Range: 11.5-14.5; Units: %; Status: F Test: PLATELET COUNT, AUTOMATED; Value: 196; Range: 150-450; Units: k/mm3; Status: F Test: NEUTROPHILS %; Value: 78.8; Range: 36.0-66.0; Abnormal: Above high normal; Units: %; Status: F Test: LYMPH %; Value: 14.1; Range: 24.0-44.0; Abnormal: Below low normal; Units: %; Status: F Test: MONO %; Value: 3.8; Range: 0.0-5.0; Units: %; Status: F Test: EOS %; Value: 1.2; Range: 0.0-3.0; Units: %; Status: F Test: BASO %; Value: 0.4; Range: 0.0-1.0; Units: %; Status: F Test: LARGE UNSTAINED CELL %; Value: 1.7; Range: 0.0-4.0; Units: %; Status: F Test: NEUTROPHILS #; Value: 6.7; Range: 1.8-7.7; Units: K/mm3; Status: F Test: LYMPH #; Value: 1.2; Range: 1.5-6.5; Abnormal: Below low normal; Units: K/mm3; Status: F Test: MONO #; Value: 0.3; Range: 0.0-0.8; Units: K/mm3; Status: F Test: EOS #; Value: 0.1; Range: 0.0-0.50; Units: K/mm3; Status: F Test: BASO #; Value: 0.0; Range: 0.0-0.2; Units: K/mm3; Status: F Test: LARGE UNSTAINED CELL #; Value: 0.2; Range: 0.0-0.4; Units: K/mm3; Status: F Lab Order: MED Profile; SPEC'M 03/30/16 01:35 Test: GLUCOSE, FASTING; Value: 86; Range: 70-105; Units: MG/DL; Status: F Test: BLOOD UREA NITROGEN; Value: 9; Range: 7-18; Units: MG/DL; Status: F Test: CREATININE FOR GFR; Value: 0.88; Range: 0.70-1.30; Units: MG/DL; Status: F Test: SODIUM LEVEL; Value: 140; Range: 136-145; Units: MEQ/L; Status: F Test: POTASSIUM SERUM; Value: 4.0; Range: 3.5-5.1; Units: MEQ/L; Status: F Test: CHLORIDE LEVEL; Value: 106; Range: 98-107; Units: MEQ/L; Status: F Test: CARBON DIOXIDE LEVEL; Value: 27; Range: 21-32; Units: MEQ/L; Status: F Test: ANION GAP; Value: 7; Range: 8-16; Abnormal: Below low normal; Units: MEQ/L; Status: F Test: CALCIUM LEVEL; Value: 8.9; Range: 8.5-10.1; Units: MG/DL; Status: F Lab Order: -Influenza A&B Rapid Antigen - Nose; SPEC'M 03/30/16 01:35 Test: INFLUENZA A RAPID SCR by ICA; Value: INFLUENZA A RESULTS NEGATIVE; Status: F Test: INFLUENZA A RAPID SCR by ICA; Value: Comments:; Status: F Test: INFLUENZA B RAPID SCR by ICA; Value: INFLUENZA B RESULTS NEGATIVE; Status: F Test Note: ; The Influenza test is a direct rapid immunoassay for the qualitative detection of Influenza viral antigen. Cell culture (Viral Culture) testing should be considered to confirm NEGATIVE results and to assist in detecting other viruses that can provide similar clinical symptoms. Please contact the lab within 24 hours ([phone] if confirmatory testing is desired. Lab Order: GATS (NEGATIVE STREP SCREEN); SPEC'M 03/30/16 01:35 Test: GATS CULTURE (NEG STREP SCR); Value: GATS RESULT NEGATIVE FOR STREP PYOGENES (GROUP A); Status: F Test: GATS CULTURE (NEG STREP SCR); Value: <EXTERNAL COMMENT eCWMed> FULL REPORT IN LAB NOTES (eCW and Medent).; Status: F Radiology Order: Chest, 2 View (pa\E\lat) Test: Chest, 2 View (pa\E\lat) REASON FOR EXAMINATION: Cough; Clinical: Acute cough .; ; Comparison: 01/31/2015 .; ; Technique: PA and lateral.; ; Findings:; The mediastinum and cardiac silhouette are normal. The lung dent are clear and; without acute consolidation, effusion, or pneumothorax. The skeletal structures; are intact and normal.; ; Impression:; 1. No acute cardiopulmonary process.; ; ; Signed by; Iftikhar Merchant MD 03/30/2016 07:56 A; Outcome: 02:41 Discharge ordered by Provider. ck7 02:45 Discharge Assessment: Patient awake, alert and oriented x 3. No cognitive and/or ld5 functional deficits noted. Patient verbalized understanding of disposition instructions. patient administered narcotics - no. The following High Risk Discharge criteria are identified: None. Discharged to home ambulatory, with significant other. Condition: stable. Discharge instructions given to patient, significant other, Instructed on discharge instructions, follow up and referral plans. medication usage, Demonstrated understanding of instructions, medications, Pt was receptive of discharge instructions/ teaching. Prescriptions given X 2. No special radiology studies were completed. Property :Personal belongings accompany Pt. 02:47 Patient left the ED. ld5 Signatures: Dispatcher [employer] EDMS Alecia Diaz, Reg Reg gb Karoline Castelan,RN RN Christine EstradaRN RN ld5 Abigail Roy Shannon RN RN slsJanes Putnam, RPA-C RPA-Cck7 Elodia Reynolds LPN LPN slGhislaine Costa, Reg Reg hs2 Tereso Costa, Reg Reg pm4 Chart Complete MTDD
== END 2016-03-30 02:47 | disposition home or self-care (01) ==
LOC: M ED 23:11
DX: J20.9 Acute bronchitis, unspecified (principal); J45.909 Unspecified asthma, uncomplicated; F17.210 Nicotine dependence, cigarettes, uncomplicated

== ENCOUNTER 2016-04-14 11:55 | Emergency (ER) | payer OTHER ==
[~2016-04-14] VITALS: Ht 170.2 cm; Wt 60.8 kg
[2016-04-14 11:55] VITALS: BP 133/57
[2016-04-14] MEDS ORDERED: CEFD300CAP FT (12:12)
[2016-04-14] MEDS ORDERED: LIDO1SOL7 OR (12:14)
== END 2016-04-14 12:25 | disposition home or self-care (01) ==
LOC: M ED 12:21
DX: J02.0 Streptococcal pharyngitis (principal); J45.909 Unspecified asthma, uncomplicated

== ENCOUNTER 2016-04-23 10:54 | Emergency (ER) | payer OTHER ==
[~2016-04-23] VITALS: Ht 170.2 cm; Wt 61.2 kg
[~2016-04-23 10:54] MED LIST: CEFD300CAP FT; LIDO1SOL7 OR
[2016-04-23] MEDS ORDERED: ZOFR4TAB3 PO (13:56)
[2016-04-23] MEDS ORDERED: AUGM875T27 PO (13:56)
[2016-04-23] MEDS ORDERED: IBUP80TA PO (13:56)
[2016-04-23 14:00] VITALS: BP 135/60
[2016-04-23] MEDS ORDERED: ONDANSETRON 4 MG ORAL DISINTEGRATING TAB (S0181) PO ONE (14:00)
[2016-04-23] MEDS ORDERED: AUGMENTIN 875 MG TAB PO ONE (14:00)
== END 2016-04-23 14:03 | disposition home or self-care (01) ==
LOC: M ED 13:26
DX: J02.0 Streptococcal pharyngitis (principal); R11.0 Nausea; H92.09 Otalgia, unspecified ear; J45.909 Unspecified asthma, uncomplicated; F17.200 Nicotine dependence, unspecified, uncomplicated

== ENCOUNTER → 2016-06-13 | Outpatient (CLI) | payer MEDICAID ==
[~2016-06-13] MED LIST changes: +AUGM875T27 PO; +IBUP80TA PO; +ZOFR4TAB3 PO
== END ==
LOC: M OUTALCOH 12:35
PROVIDERS: ATTEND Psychiatry & Neurology Psychiatry
DX: Z13.9 Encounter for screening, unspecified (principal); F12.20 Cannabis dependence, uncomplicated

== ENCOUNTER 2016-07-05 08:00 | Outpatient (RCR) | payer MEDICAID | END 2016-07-11 | LOC: M OUTALCOH 08:00 | PROVIDERS: ATTEND Psychiatry & Neurology Psychiatry | DX: F12.20 Cannabis dependence, uncomplicated (principal); F17.200 Nicotine dependence, unspecified, uncomplicated ==

== ENCOUNTER 2016-08-13 01:17 | Emergency (ER) | payer MEDICAID, OTHER ==
[~2016-08-13] VITALS: Ht 170.2 cm; Wt 63.6 kg
[~2016-08-13 01:17] MED LIST changes: -AUGM875T27 PO; +AUGM875T28 PO
[2016-08-13] MEDS ORDERED: KETOROLAC 30 MG/ML VIAL (J1885) IM ONE (03:30)
[2016-08-13] MEDS ORDERED: AUGM875T28 PO (03:32)
[2016-08-13] MEDS ORDERED: IBUP1TAB7 PO (03:35)
[2016-08-13 03:52] VITALS: BP 112/57
[2016-12-12] MEDS ORDERED: AMOX500C PO (16:59)
== END 2016-08-13 04:04 | disposition home or self-care (01) ==
LOC: M ED 01:17
DX: H66.91 Otitis media, unspecified, right ear (principal); K02.9 Dental caries, unspecified; F17.200 Nicotine dependence, unspecified, uncomplicated

== ENCOUNTER → 2016-10-10 | Outpatient (CLI) | payer MEDICAID ==
[~2016-10-10] MED LIST changes: +AMOX500C PO; +IBUP1TAB7 PO
== END ==
LOC: M OUTALCOH 11:57
PROVIDERS: ATTEND Psychiatry & Neurology Psychiatry
DX: Z71.51 Drug abuse counseling and surveillance of drug abuser (principal); F12.20 Cannabis dependence, uncomplicated

== ENCOUNTER 2017-02-08 08:13 | Emergency (ER) | payer OTHER | END 2017-02-08 10:00 | disposition home or self-care (01) | LOC: M ED 08:13 | DX: J06.9 Acute upper respiratory infection, unspecified (principal); J01.90 Acute sinusitis, unspecified; J45.909 Unspecified asthma, uncomplicated; F17.200 Nicotine dependence, unspecified, uncomplicated; R91.1 Solitary pulmonary nodule | CPT/HCPCS: 71020 ==

== ENCOUNTER 2017-02-11 20:10 | Emergency (ER) | payer OTHER ==
[2017-02-11] MEDS: KETOROLAC 30 MG/ML VIAL (J1885) IV ×2 (22:15)
[2017-02-11 22:42] LABS: BASO # 0.1 10^3/uL (0.0-0.2); BASO % 0.7 % (0.0-1.0); EOS # 0.5 10^3/uL (0.0-0.50); EOS % 7.2 % (0.0-3.0); HEMATOCRIT 42.1 % (42.0-52.0); HEMOGLOBIN 14.6 g/dl (14.0-18.0); IMMATURE GRANULOCYTE % 0.3 % (0-0); LYMPH # 2.2 10^3/uL (1.5-6.5); LYMPH % 30.5 % (24.0-44.0); MEAN CORPUSCULAR HEMOGLOBIN 30.6 pg (27.0-33.0); MEAN CORPUSCULAR HGB CONC 34.7 g/dl (32.0-36.5); MEAN CORPUSCULAR VOLUME 88.3 fl (80.0-96.0); MONO # 0.5 10^3/uL (0.0-0.8); MONO % 6.3 % (0.0-5.0); PLATELET COUNT, AUTOMATED 279 10^3/uL (150-450); RED BLOOD COUNT 4.77 10^6/uL (4.30-6.10); RED CELL DISTRIBUTION WIDTH 12.1 % (11.5-14.5); WHITE BLOOD COUNT 7.2 10^3/uL (4.0-10.0)
[2017-02-11 22:53] LABS: KETONE, URINE AUTO RFX NEGATIVE (NEGATIVE); LEUKOCYTE ESTERASE UR AUTO RFX NEGATIVE (NEGATIVE); MUCUS, URINE RFX SMALL (NEGATIVE); NITRITE, URINE AUTO RFX NEGATIVE (NEGATIVE); RBC, URINE AUTO RFX 5 /HPF (0-3); SPECIFIC GRAVITY UR AUTO RFX 1.024 (1.002-1.035); SQUAM EPITHELIAL CELL UR AURFX 0 /HPF (0-6); WBC, URINE AUTO RFX 2 /HPF (0-3)
[2017-02-11 23:16] LABS: ALBUMIN/GLOBULIN RATIO 1.21 (1.00-1.93); ALKALINE PHOSPHATASE 99 U/L (45-117); ALT/SGPT 21 U/L (12-78); ANION GAP 3 MEQ/L (8-16); AST/SGOT 14 U/L (7-37); BILIRUBIN,DIRECT < 0.1 MG/DL (0.0-0.2); BILIRUBIN,TOTAL 0.2 MG/DL (0.2-1.0); BLOOD UREA NITROGEN 11 MG/DL (7-18); CALCIUM LEVEL 9.2 MG/DL (8.5-10.1); CARBON DIOXIDE LEVEL 32 MEQ/L (21-32); CHLORIDE LEVEL 107 MEQ/L (98-107); CREATININE FOR GFR 0.88 MG/DL (0.70-1.30); GLUCOSE, FASTING 89 MG/DL (70-105); LIPASE 95 U/L (73-393); POTASSIUM SERUM 4.7 MEQ/L (3.5-5.1); SODIUM LEVEL 142 MEQ/L (136-145); TOTAL PROTEIN 7.3 GM/DL (6.4-8.2)
== END 2017-02-12 00:15 | disposition home or self-care (01) ==
LOC: M ED 02-12 00:15
DX: R10.9 Unspecified abdominal pain (principal); Z87.442 Personal history of urinary calculi; Z87.891 Personal history of nicotine dependence; Z79.899 Other long term (current) drug therapy
CPT/HCPCS: J1885

== ENCOUNTER 2017-05-08 22:28 | Emergency (ER) | payer OTHER, SELFPAY ==
[2017-05-09] MEDS: NS 1,000 ML IV ×2 (01:15)
[2017-05-09] MEDS: METOCLOPRAMIDE INJ 10MG/2ML VIAL (J2765) IV ×2 (01:15)
[2017-05-09] MEDS: GASTROGRAFIN SOLUTION 30ML PO ×4 (01:30→01:47)
[2017-05-09 01:38] LABS: BASO % 0.3 % (0.0-1.0); EOS # 0.5 10^3/uL (0.0-0.50); EOS % 6.2 % (0.0-3.0); HEMATOCRIT 40.9 % (42.0-52.0); HEMOGLOBIN 14.4 g/dl (14.0-18.0); IMMATURE GRANULOCYTE % 0.3 % (0-3.0); LYMPH # 1.5 10^3/uL (1.5-6.5); LYMPH % 20.4 % (24.0-44.0); MEAN CORPUSCULAR HEMOGLOBIN 30.3 pg (27.0-33.0); MEAN CORPUSCULAR HGB CONC 35.2 g/dl (32.0-36.5); MEAN CORPUSCULAR VOLUME 86.1 fl (80.0-96.0); MONO # 0.8 10^3/uL (0.0-0.8); MONO % 10.8 % (0.0-5.0); NEUTROPHILS # 4.5 10^3/uL (1.8-7.7); PLATELET COUNT, AUTOMATED 225 10^3/uL (150-450); RED BLOOD COUNT 4.75 10^6/uL (4.30-6.10); RED CELL DISTRIBUTION WIDTH 12.2 % (11.5-14.5); WHITE BLOOD COUNT 7.2 10^3/uL (4.0-10.0)
[2017-05-09 02:01] LABS: ALBUMIN 3.9 GM/DL (3.2-5.2); ALBUMIN/GLOBULIN RATIO 1.22 (1.00-1.93); ALKALINE PHOSPHATASE 103 U/L (45-117); ALT/SGPT 17 U/L (12-78); ANION GAP 4 MEQ/L (8-16); AST/SGOT 10 U/L (7-37); BILIRUBIN,DIRECT < 0.1 MG/DL (0.0-0.2); BILIRUBIN,TOTAL 0.3 MG/DL (0.2-1.0); BLOOD UREA NITROGEN 11 MG/DL (7-18); CALCIUM LEVEL 9.1 MG/DL (8.5-10.1); CARBON DIOXIDE LEVEL 30 MEQ/L (21-32); CHLORIDE LEVEL 108 MEQ/L (98-107); CREATININE FOR GFR 0.82 MG/DL (0.70-1.30); GLUCOSE, FASTING 86 MG/DL (70-100); LIPASE 69 U/L (73-393); POTASSIUM SERUM 3.8 MEQ/L (3.5-5.1); SODIUM LEVEL 142 MEQ/L (136-145); TOTAL PROTEIN 7.1 GM/DL (6.4-8.2)
== END 2017-05-09 04:58 | disposition home or self-care (01) ==
LOC: M ED 22:28
DX: R10.9 Unspecified abdominal pain (principal); N20.0 Calculus of kidney; K59.00 Constipation, unspecified; R19.7 Diarrhea, unspecified; J45.909 Unspecified asthma, uncomplicated; Z87.442 Personal history of urinary calculi; F17.200 Nicotine dependence, unspecified, uncomplicated
CPT/HCPCS: Q9963

== ENCOUNTER 2017-06-13 06:09 | Emergency (ER) | payer MEDICAID, SELFPAY, OTHER ==
[2017-06-13] MEDS: AUGMENTIN 875 MG TAB PO ×2 (07:30)
[2017-06-13] MEDS: PERCOCET 5MG/325MG TAB PO ×2 (07:30)
== END 2017-06-13 07:53 | disposition home or self-care (01) ==
LOC: M ED 06:09
DX: K08.89 Other specified disorders of teeth and supporting structures (principal); J45.909 Unspecified asthma, uncomplicated; F17.200 Nicotine dependence, unspecified, uncomplicated
CPT/HCPCS: 99282

== ENCOUNTER 2019-04-01 11:25 | Emergency (ER) | payer OTHER ==
[~2019-04-01] VITALS: Ht 170.2 cm; Wt 65.8 kg
[~2019-04-01 11:25] MED LIST changes: +ALB2.5NEB INH; +CEFD300C41 FT; -CEFD300CAP FT; +FLOM0.4C39 PO; +KETO10TAB PO; -LIDO1SOL7 OR; +LIDO2SOL17 OR; +TESS100C PO; +ZITHTAB PO; +ZOFR4TAB14 PO; -ZOFR4TAB3 PO
[2019-04-01 12:22] LABS: INFLUENZA A AMPLIFICATION NEGATIVE (NEGATIVE); INFLUENZA B AMPLIFICATION NEGATIVE (NEGATIVE)
[2019-04-01] MEDS ORDERED: FLUTISP (12:38)
[2019-04-01 12:46] VITALS: BP 113/59
== END 2019-04-01 12:48 | disposition home or self-care (01) ==
LOC: M ED 11:25
DX: J01.80 Other acute sinusitis (principal); J31.0 Chronic rhinitis

== ENCOUNTER 2020-05-12 07:29 | Emergency (ER) | payer OTHER ==
[~2020-05-12] VITALS: Ht 170.2 cm; Wt 65.1 kg
[~2020-05-12 07:29] MED LIST changes: +FLUTISP
[2020-05-12] MEDS ORDERED: AUGMENTIN 875 MG TAB PO ONE (08:45)
[2020-05-12] MEDS ORDERED: IBUPROFEN 800 MG TAB PO ONE (08:45)
[2020-05-12] MEDS ORDERED: AUGM875T28 PO (09:06)
[2020-05-12 09:11] VITALS: BP 122/58
== END 2020-05-12 09:12 | disposition home or self-care (01) ==
LOC: M ED 07:29
DX: K04.7 Periapical abscess without sinus (principal); K08.89 Other specified disorders of teeth and supporting structures; J45.909 Unspecified asthma, uncomplicated; Z87.442 Personal history of urinary calculi

== ENCOUNTER 2021-01-08 18:57 | Emergency (ER) | payer OTHER ==
[~2021-01-08] VITALS: Ht 170.2 cm; Wt 66.1 kg
[2021-01-08 18:59] VITALS: BP 120/63
== END 2021-01-08 20:58 | disposition left against medical advice (07) ==
LOC: M ED 18:57
DX: Z53.21 Procedure and treatment not carried out due to patient leaving prior to being seen by health care provider (principal)